=== PATIENT | male | born 1970 | race Hispanic/Latino ===

== ENCOUNTER 2018-09-04 21:49 | Emergency (ER) | payer SELFPAY ==
[~2018-09-04] VITALS: Ht 182.9 cm; Wt 127.0 kg
--- NOTE | 2018-09-04 23:07 | Diagnostic Imaging Report ---
EXAMINATION: CHEST 2 VIEWS INDICATION: Cough, wheezing, chest pain, shortness of breath. ^COUGH ^[id number] ^2242 ^Y COMPARISON: None FINDINGS: PA and lateral views TUBES and LINES: None. LUNGS: Lungs are well inflated. Lungs are clear. There is no evidence of pneumonia or pulmonary edema. PLEURA: No pleural effusion or pneumothorax. HEART AND MEDIASTINUM: The cardiomediastinal silhouette is unremarkable. BONES AND SOFT TISSUES: No acute osseous lesion. Soft tissues are unremarkable. UPPER ABDOMEN: No free air under the diaphragm. IMPRESSION: No acute thoracic abnormality. Signed by: DR. Junior Rosales MD on 09/04/2018 11:04 PM
== END 2018-09-04 23:39 | disposition home or self-care (01) ==
LOC: ER 21:49
DX: R05 Cough (principal); J30.2 Other seasonal allergic rhinitis
CPT/HCPCS: 71046; 99283